=== PATIENT | female | born 1990 | race Caucasian/White ===

== ENCOUNTER → 2017-06-20 | Outpatient (CLI) | payer OTHER ==
[~2017-06-20] MED LIST: CHOL1000 PO; CITA20TA4 PO; CLOZ100T18 PO; CLOZ50TA PO; DIVA500T3 PO; GUAN1TAB12 PO; HYDR50CA2 PO; LEVE500T26 PO; LEVO150T9 PO; MELA1TAB54 PO; METF-384 PO; PRAZ2CAP2 PO; TRAZ100T29 PO
== END | disposition home or self-care (01) ==
LOC: C.LAB 10:12
PROVIDERS: ATTEND Internal Medicine Endocrinology, Diabetes & Metabolism
DX: E03.9 Hypothyroidism, unspecified (principal); E55.9 Vitamin D deficiency, unspecified